=== PATIENT | female | born 1955 | race Caucasian/White ===

== ENCOUNTER 2021-01-18 13:42 | Emergency (ER) | payer BC, SELFPAY ==
--- NOTE | ~2021-01-18 | CT_ITS ---
EXAMINATION: CT FACIAL BONES WITHOUT CONTRAST CLINICAL INFORMATION: Pain/swelling and lump right maxillary area x 4 days. COMPARISON: None TECHNIQUE: Axial 3 mm thin and reformatted 1.5 mm thin sagittal and coronal images of facial bones were obtained. This CT examination was performed using dose optimization techniques as appropriate, variously including the following: *Automated exposure control *Adjustment of mA and/or kV according to patient size (this includes techniques or standardized protocols for targeted exams where dose is matched to indication/reason for exam; i.e. extremities or head) *Use of iterative reconstruction technique DLP: 253 mGy-cm FINDINGS: There is no acute maxillofacial fracture. The pterygoid plates are intact. The zygomatic arches are intact. The lamina papyracea are intact. The orbital rims are intact. The paranasal sinuses are well-aerated. No air-fluid levels are seen. There is mild deviation of the nasal septum to the left with a small bony spur. The ostiomeatal complexes are clear. The lamina papyracea are intact. The ethmoid roofs are symmetric. The carotid canals are normally covered by bone. The oral cavities are limited in evaluation secondary to dental hardware artifact. The mastoid air cells and visualized middle ear cavities are well-aerated. The orbits are normal. The TMJs are unremarkable. The imaged portions of the brain demonstrate no acute abnormality. CT/CT facial bones wo con IMPRESSION: No soft tissue mass or swelling seen along the right maxillary area.
[2021-01-18 14:08] VITALS: BP 132/66; PULSE 59; RESP 18; TEMP 36.7; O2SAT 98; BMI 25.0
--- NOTE | 2021-01-18 16:55 | ED_ITS ---
HPI - Skin/Abscess/Foreign Bdy General Chief complaint: Skin/Abscess/Foreign Body Stated complaint: eye issue Time Seen by Provider: 01/18/21 14:12 Source: patient Mode of arrival: ambulatory Limitations: no limitations History of Present Illness MD complaint: other (Lump to right maxillary area) Onset (ago): day(s) (4-5 days ago) Location: face Severity: mild Quality: aching and constant Pain Consistency: constant Relieving factors: none Exacerbating factors: palpation Context: none Associated symptoms: denies other symptoms Treatments prior to arrival: none Related Data Previous Rx's Medication Instructions Recorded amoxicillin 875 mg-potassium 1 tab PO BID 10 Days #20 tab 01/18/21 clavulanate 125 mg tablet (Augmentin) prednisone 20 mg tablet 20 mg PO DAILY 7 Days #7 tab 01/18/21 Allergies Allergy/AdvReac Type Severity Reaction Status Date / Time No Known Allergies Allergy Mild NOT Verified 01/18/21 14:07 APPLICABLE Review of Systems Review of Systems: Constitutional : No Fever, No Chills, Cardiovascular : No Chest Pain, No SOB Respiratory : No Dyspnea Gastrointestinal : No abdominal pain Musculoskeletal : No Joint Swelling Skin : positive skin lump, No skin laceration, No Foreign bodies, No rash, No surrounding erythema Neuro : No Weakness, No Numbness/tingling Psych : No SI/HI/thoughts of self injury Yes all other systems are reviewed and are negative [facility] Past Medical History Attestation statement: The following information was validated with the patient. Surgical History S/P hip replacement Social History Social History Advance Directives: No Advance Directives Information Provided: No Physical Exam Vital Signs: Vital Signs: Last Vital Signs Temp 98.0 F 01/18/21 14:08 Pulse 59 01/18/21 14:08 Resp 18 01/18/21 14:08 BP 132/66 01/18/21 14:08 Pulse Ox 98 01/18/21 14:08 Body Mass Index 25.0 vital signs have been reviewed as normal and appeared to be correct. Blood pressure normal. Heart rate normal. Respiration rate normal. Temperature normal. Oxygen saturation normal. Appearance: Alert. Oriented X3. No acute distress. Head: Normal external exam. Normocephalic. Atraumatic. To the right maxillary area patient has tenderness all patient and a lump that is non mobile noted with mild soft tissue swelling. No erythema/streaking/fluctuance or foreign bodies/ecchymosis or signs of trauma noted. Eyes: PERRLA. EOMI. Conjunctiva and sclera normal. Eyelids normal. ENT: Pharynx normal. Uvula midline. Moist mucous membranes. Neck: Normal inspection. Neck supple. FROM. No meningeal signs. No neck mass noted. CVS: Normal heart rate and rhythm. Respiratory: No respiratory distress. Painless inspiration. Back: Full range of motion noted. No rashes/lesion/induration/fluctuance or signs of infection noted. Skin: Skin warm and dry. Normal skin color. Normal skin turgor. No rashes/lesions/lacerations noted. Extremities: Extremities exhibit normal range of motion. Extremities nontender. Neuro: Oriented X 3. No motor deficit. No sensory deficit. Reflexes normal. Normal steady gait. No focal neuro deficits noted. Vascular: + radial pulses Normal cap refill. No cyanosis noted to upper extremity nails Course Course Course Narrative: 14:35pm - 65-year-old female presenting to the ED with complaints of atraumatic lump to her right maxillary area over the past 4 days with pain. She denies any trauma to the site. She denies any other symptoms complaints or concerns at this time. Therefore at this time will obtain a CT scan of facial bones and re-evaluate. Reevaluation(s) Reevaluation #1: - CT scan of facial bones negative for any acute processes. Therefore print out the results and gave it to the patient. Will will try some antibiotics and some steroids and instructions to follow-up with her PCP within the next 1-2 weeks for an outpatient MRI and to return if any new or worsening symptoms. Patient understands agrees with this plan. Time: 17:21 MDM - Skin/Abscess/Foreign Bdy Medical Records Attestation: I reviewed the patient's medical records. Imaging Data CT scan of facial bones without contrast: Attestation: I personally reviewed and interpreted this imaging study as follows: Radiologist's impression: FINDINGS: There is no acute maxillofacial fracture. The pterygoid plates are intact. The zygomatic arches are intact. The lamina papyracea are intact. The orbital rims are intact. The paranasal sinuses are well-aerated. No air-fluid levels are seen. There is mild deviation of the nasal septum to the left with a small bony spur. The ostiomeatal complexes are clear. The lamina papyracea are intact. The ethmoid roofs are symmetric. The carotid canals are normally covered by bone. The oral cavities are limited in evaluation secondary to dental hardware artifact. The mastoid air cells and visualized middle ear cavities are well-aerated. The orbits are normal. The TMJs are unremarkable. The imaged portions of the brain demonstrate no acute abnormality. CT/CT facial bones wo con IMPRESSION: No soft tissue mass or swelling seen along the right maxillary area. Discharge Plan Discharge Clinical Impression: Lump on face Patient Disposition: Home, Self-Care Instructions: Atypical Facial Pain (ED) Prescriptions: New amoxicillin-pot clavulanate [Augmentin] 875-125 mg tablet 1 tab PO BID 10 Days Qty: 20 RF: 0 prednisone 20 mg tablet 20 mg PO DAILY 7 Days Qty: 7 RF: 0 Referrals: Mateus Mccord DO [Primary Care Provider] - 2 days (Call tomorrow to make a follow-up appointment within the next 1-2 weeks for an outpatient MRI to further evaluate this lump on the right maxillary/facial aspect) Print Language: Faroese
[2021-01-18] MEDS: Ibuprofen 600 MG TABLET PO (17:24)
== END 2021-01-18 17:33 | disposition home or self-care (01) ==
PROVIDERS: Emergency Provider Emergency Medicine; PCP Internal Medicine
DX: R22.0 Localized swelling, mass and lump, head (principal); R68.84 Jaw pain; Z79.899 Other long term (current) drug therapy
CPT/HCPCS: 70486; 99283; 99284

== ENCOUNTER → 2021-01-27 14:41 | Outpatient (BNVA) | payer BC, SELFPAY | PROVIDERS: PCP Internal Medicine; Referring Provider Internal Medicine; Visit Provider Internal Medicine Cardiovascular Disease | DX: R00.2 Palpitations (principal); R06.02 Shortness of breath; Z82.49 Family history of ischemic heart disease and other diseases of the circulatory system | CPT/HCPCS: 93005 ==

== ENCOUNTER → 2021-02-16 09:39 | Outpatient (REF) | payer BC, SELFPAY ==
--- NOTE | 2021-02-16 09:44 | HM_ITS ---
Conclusion: 1. Patient was monitored for total period of 13 days and 6 hours 2. Baseline rhythm is normal sinus rhythm with average heart of 74 beats per minute 3. No significant pauses or bradycardia noted 4. Two episodes of Mobitz type 1 second-degree AV block noted around 7.30-8 p.m.. 5. 5 supraventricular tachycardia episode longest lasting 15 beats 6. Rare ectopy noted 7. Patient reported event correlated with sinus rhythm MTDD
--- NOTE | 2021-02-16 09:44 | CA_ITS ---
Acquisition Time: 2021-02-16 09:50:52 Total Exercise Time: 00:05:21 Test Indications: SOB, PALPITATIONS Medications: SEE CHART Protocol: OLY Max HR: 153 BPM 98% of Pred: 156 BPM Max BP: 148/066 mmHG Max Work Load: 7.0 METS Exercise stress test with exercise 5 min 21 of Oly protocol, without anginal symptoms, without arrythmia, with normotensive response to exercise, without EKG changes meeting criteria for ischemia. Test reviewed with Dr Lieberman. Referred By: Mario Mendez Overread By: XIAO AGUILERA
== END ==
LOC: HO.CARD 09:39
PROVIDERS: Visit Provider Internal Medicine Cardiovascular Disease
DX: R00.2 Palpitations (principal); R06.02 Shortness of breath
CPT/HCPCS: 93017; 93246

== ENCOUNTER 2021-02-17 15:13 | Outpatient (REF) | payer BC, SELFPAY ==
--- NOTE | ~2021-02-17 | US_ITS ---
EXAMINATION: US EXTRACRANIAL CAROTID DUPLEX, BILATERAL CLINICAL INFORMATION: Family history of ischemic heart disease, palpitations COMPARISON: None TECHNIQUE: Real-time ultrasound and Doppler techniques (integrating B-mode 2-D vascular images, Doppler spectral analysis and color-flow Doppler imaging) were utilized to interrogate the extracranial carotid arteries, the vertebral arteries and proximal subclavian arteries bilaterally. The degree of stenosis is determined by criteria similar to NASCET. FINDINGS: Right Side: 1. There is heterogeneous atherosclerotic plaque seen in the bifurcation/proximal ICA region. 2. The common carotid artery PSV proximally is 136 cm/s and distally 104 cm/s. 3. The proximal internal carotid artery velocities are 102 cm/s systolic and 46 cm/s diastolic. 4. The proximal external carotid artery PSV is 108 cm/s. 5. The vertebral artery shows antegrade flow. 6. The subclavian artery waveforms are normal. Left Side: 1. There is mild atherosclerotic plaque seen in the bifurcation/proximal ICA region. 2. The common carotid artery PSV proximally is 97 cm/s and distally 136 cm/s. 3. The proximal internal carotid artery velocities are 113 cm/s systolic and 50 cm/s diastolic. 4. The proximal external carotid artery PSV is 101 cm/s. 5. The vertebral artery shows antegrade flow. 6. The subclavian artery waveforms are normal. US/US carotid duplex BI IMPRESSION: 1. RIGHT: Minimal, non-hemodynamically significant stenosis of the proximal right internal carotid artery corresponding to a 0-49% stenosis by velocity criteria. 2. LEFT: Minimal, non-hemodynamically significant stenosis of the proximal left internal carotid artery corresponding to a 0-49% stenosis by velocity criteria.
== END 2021-02-17 15:14 | disposition home or self-care (01) ==
LOC: HO.US 15:13
PROVIDERS: Visit Provider Internal Medicine Cardiovascular Disease
DX: R00.2 Palpitations (principal); Z82.49 Family history of ischemic heart disease and other diseases of the circulatory system
CPT/HCPCS: 93880

== ENCOUNTER → 2021-03-24 09:17 | Outpatient (REF) | payer BC, SELFPAY ==
--- NOTE | 2021-03-24 09:22 | CA_ITS ---
Transthoracic Echocardiogram Patient (Last, First, Middle): Avani Pendleton, Gender: Female Date of : 1955 Age: 65 Procedure Date: 03/24/2021 Procedure Type: Transthoracic Echocardiogram Location: OP Height: 170.18 cm Weight: 73.03 kg BSA: 1.84 m2 Heart Rate: bpm BP: 110 / 70 mmHg Data Support Analyst: SOTREO Referring MD: Mario Mendez MD [employer]: Mario Mendez MD Symptoms: R00.2 - Palpitations Study Quality: Fair ECG Rhythm: Sinus Conclusions: - 1. Normal LV systolic function with grade 1 diastolic dysfunction 2. Normal cardiac valvular Doppler 3. Normal RV systolic pressure 4. No pericardial effusion Findings Left Ventricle Normal left ventricular size, thickness, and systolic function. The visually estimated ejection fraction is between 60-65%. Spectral Doppler is indicative of an impaired relaxation filling pattern. E/E prime ratio is <8, consistent with normal filling pressures. Right Ventricle Normal right ventricular cavity size and systolic function. Atria Both atria are normal in size. Interatrial shunt cannot be excluded. Aortic Valve The aortic valve structure and function is likely normal. There is no aortic valve stenosis. There is no aortic valve regurgitation. Mitral Valve Normal mitral valve structure and function. There is trace mitral valve regurgitation. There is no mitral valve stenosis. Pulmonic Valve The pulmonic valve was not well visualized. Tricuspid Valve Likely normal tricuspid valve structure and function. There is trace tricuspid valve regurgitation. The right ventricular systolic pressure is normal. The right ventricular systolic pressure is 15 mmHg. Normal right atrial pressure. There is no evidence of pulmonary hypertension. Great Vessels All visible segments of the aorta are normal in size. The pulmonary artery was not well visualized. Venous The inferior vena cava is normal in size and collapses greater than 50% with inspiration. Pericardium/Pleural There is no evidence of pericardial effusion. Prior Study Comparison no previous study in the last 5 years for comparison Measurements 2D Linear Measurements IVSd: 1.05 0.6-0.9/0.6-1.0 cm LVIDd: 4.12 3.9-5.3/4.2-5.9 cm LVIDd Index: 2.24 2.4-3.2/2.2-3.1 cm/m2 LVIDs: 2.91 2.0-3.6 cm LVPWd: 0.83 0.7-1.1 cm Ao Root: 3.60 2.1-3.5 cm LA Diam: 2.80 2.7-3.8/3.0-4.0 cm LAIDs Index: 1.52 1.5-2.3 cm/m2 LV Mass: 151.46 67-162/88-224 g LV Mass Index: 82.31 43-95/49-115 g/m2 LVOT Diam: 2.10 3.0+(-)1.3 cm 2D Systolic Function EF 4C: 65.70 >55% EF 2C: 71.90 >55% EF BiP: 67.10 >55% Mitral Valve MV Pk E: 0.55 MV PK A: 0.78 MV Decel Time: 266.00 E/A: 0.70 E'Lateral: 9.90 E'Medial: 8.16 E/E' Med: 6.80 E/E' Lat: 5.60 PHT: 78.00 MVA PHT: 2.82 Decel Steele: 2.08 Aortic Valve AoV Pk Rayo: 1.03 AoV Mn Rayo: 0.84 AoV VTI: 0.26 AoV Pk Grad: 4.00 Aov Mn Grad: 3.00 MARGOTH Cont.VTI: 2.23 LVOT LVOT Pk Rayo: 0.65 LVOT Mn Rayo: 0.50 LVOT VTI: 0.17 LVOT Pk Grad: 2.00 LVOT Mn Grad: 1.00 LVOT Diam: 2.10 LVOT Area: 3.46 Diastolic Function MV Pk E: 0.55 MV Pk A: 0.78 E/A: 0.70 E'Medial: 8.16 E/E' Med: 6.80 E' Laterial: 9.90 E/E' Lat: 5.60 Right Ventricle TAPSE (mm): 19.10 TVS' Rayo: 9.79 Tricuspid Valve TR Pk Rayo: 1.75 TR Pk Grad: 12.00 RA Press: 3.00 RVSP: 15.00 Great Vessels Aorta Ao Root-2D: 3.60 2.0-3.7 cm Ao Asc: 3.20 2.1-3.4 cm Updated in Other Vendor System with Status of Final Mario Mendez MD electronically signed on 03/25/2021 4:16:42 PM with status of Final
== END ==
LOC: HO.CARD 09:17
PROVIDERS: Visit Provider Internal Medicine Cardiovascular Disease
DX: R00.2 Palpitations (principal); R06.02 Shortness of breath
CPT/HCPCS: 93306

== ENCOUNTER → 2021-04-04 13:43 | Outpatient (BNVA) | payer BC, SELFPAY | PROVIDERS: PCP Internal Medicine; Referring Provider Internal Medicine; Visit Provider Internal Medicine Cardiovascular Disease ==

== ENCOUNTER 2021-04-09 09:34 | Outpatient (REF) | payer BC, SELFPAY ==
[2021-04-09 10:25] LABS: Cholesterol 231 mg/dL; HDL Cholesterol 62 mg/dL; LDL Cholesterol Calculated 153 mg/dl; Triglycerides 84 mg/dL
[2021-04-11 20:07] LABS: CRP High Sensitivity 1.9 mg/L
== END 2021-04-09 09:35 | disposition home or self-care (01) ==
LOC: HO.LAB 09:34
PROVIDERS: PCP Internal Medicine; Visit Provider Internal Medicine Cardiovascular Disease
DX: I25.10 Atherosclerotic heart disease of native coronary artery without angina pectoris (principal); I65.23 Occlusion and stenosis of bilateral carotid arteries; E78.5 Hyperlipidemia, unspecified
CPT/HCPCS: 36415; 80061; 86141

== ENCOUNTER 2021-06-29 08:24 | Outpatient (REF) | payer BC, SELFPAY ==
[2021-06-29 09:31] LABS: Cholesterol 143 mg/dL; HDL Cholesterol 67 mg/dL; LDL Cholesterol Calculated 67 mg/dl; Triglycerides 49 mg/dL
== END 2021-06-29 08:25 | disposition home or self-care (01) ==
LOC: HO.LAB 08:24
PROVIDERS: PCP Internal Medicine; Visit Provider Internal Medicine Cardiovascular Disease
DX: I65.23 Occlusion and stenosis of bilateral carotid arteries (principal)
CPT/HCPCS: 36415; 80061

== ENCOUNTER 2022-05-08 09:44 | Outpatient (REF) | payer MEDICARE, SELFPAY ==
--- NOTE | ~2022-05-08 | US_ITS ---
EXAMINATION: US EXTRACRANIAL CAROTID DUPLEX, BILATERAL CLINICAL INFORMATION: Carotid stenosis. COMPARISON: Carotid ultrasound 02/17/2021. TECHNIQUE: Real-time ultrasound and Doppler techniques (integrating B-mode 2-D vascular images, Doppler spectral analysis and color-flow Doppler imaging) were utilized to interrogate the extracranial carotid arteries, the vertebral arteries and proximal subclavian arteries bilaterally. The degree of stenosis is determined by criteria similar to NASCET. FINDINGS: Right Side: 1. There is mild atherosclerotic plaque seen in the bifurcation/proximal ICA region. 2. The common carotid artery PSV proximally is 147 cm/s and distally 92 cm/s. 3. The proximal internal carotid artery velocities are 112 cm/s systolic and 32 cm/s diastolic. 4. The proximal external carotid artery PSV is 103 cm/s. 5. The vertebral artery shows antegrade flow. 6. The subclavian artery waveforms are normal. Left Side: 1. There is mild atherosclerotic plaque seen in the bifurcation/proximal ICA region. 2. The common carotid artery PSV proximally is 112 cm/s and distally 112 cm/s. 3. The proximal internal carotid artery velocities are 117 cm/s systolic and 38 cm/s diastolic. 4. The proximal external carotid artery PSV is 101 cm/s. 5. The vertebral artery shows antegrade flow. 6. The subclavian artery waveforms are normal. US/US carotid duplex BI IMPRESSION: 1. RIGHT: Minimal, non-hemodynamically significant stenosis of the proximal right internal carotid artery corresponding to a 0-49% stenosis by velocity criteria. 2. LEFT: Minimal, non-hemodynamically significant stenosis of the proximal left internal carotid artery corresponding to a 0-49% stenosis by velocity criteria. 3. There is no change in the category severity of disease when compared to the previous study dated 02/17/2021.
[2022-05-08 11:37] LABS: Cholesterol 150 mg/dL; HDL Cholesterol 63 mg/dL; LDL Cholesterol Calculated 75 mg/dl; Triglycerides 61 mg/dL
== END 2022-05-08 09:45 | disposition home or self-care (01) ==
LOC: HO.US 09:44
PROVIDERS: PCP Internal Medicine; Visit Provider Internal Medicine Cardiovascular Disease
DX: I65.23 Occlusion and stenosis of bilateral carotid arteries (principal)
CPT/HCPCS: 36415; 80061; 93880

== ENCOUNTER → 2022-06-13 12:55 | Outpatient (BNVA) | payer MEDICARE, SELFPAY | PROVIDERS: PCP Internal Medicine; Referring Provider Internal Medicine; Visit Provider Internal Medicine Cardiovascular Disease | DX: I47.1 Supraventricular tachycardia (principal); I65.23 Occlusion and stenosis of bilateral carotid arteries | CPT/HCPCS: 93005; 99212 ==

== ENCOUNTER 2022-10-13 08:14 | Outpatient (REF) | payer MEDICARE, SELFPAY ==
[2022-10-13 09:36] LABS: Cholesterol 159 mg/dL; HDL Cholesterol 73 mg/dL; LDL Cholesterol Calculated 72 mg/dl; Triglycerides 70 mg/dL
[2022-10-16 10:43] LABS: CRP High Sensitivity 0.7 mg/L
== END 2022-10-13 08:15 | disposition home or self-care (01) ==
LOC: HO.LAB 08:14
PROVIDERS: PCP Internal Medicine; Visit Provider Internal Medicine Cardiovascular Disease
DX: I25.10 Atherosclerotic heart disease of native coronary artery without angina pectoris (principal); I65.23 Occlusion and stenosis of bilateral carotid arteries; E78.5 Hyperlipidemia, unspecified
CPT/HCPCS: 36415; 80061; 86141

== ENCOUNTER 2023-06-26 09:14 | Outpatient (AMB) | payer MEDICARE, SELFPAY ==
[2023-06-26 09:24] VITALS: BP 120/80; PULSE 70; BMI 25.2
--- NOTE | 2023-06-26 09:24 | MHC.OFFVIS ---
Vital Signs 06/26/23 09:24 Height 5 ft 7 in Weight 160 lb 14.999 oz BMI 25.2 BP 120/80 Blood Pressure Location Lt brachial Position Sitting Pulse 70 Intake Visit Reasons: 1 yr f/up Intake Note: 1 year follow-up with ekg c/o some chest pain in center of chest Ultrasound Spec Required: No Allergies No Known Allergies Allergy (Mild, Verified 06/13/22 13:09) NOT APPLICABLE Medication List - Last Reconciled 06/26/23 by Mario Mendez MD aspirin (Adult Low Dose Aspirin) 81 mg PO DAILY atorvastatin 20 mg PO DAILY hydrocodone-acetaminophen 7.5-325 mg 1 tab PO TID PRN lorazepam 0.5 mg PO DAILY PRN raloxifene 60 mg PO DAILY trazodone 50 mg PO BEDTIME HPI Comments Details: Avani comes for follow-up. She has been doing overall well. Lipids are well controlled although she says she has not been tolerating atorvastatin side effects with muscle and joint aches. Recently she would developed some left-sided chest discomfort which she describes as tightness. She said these episodes of with exertion. She has been otherwise doing well. Regularly exercising. No prolonged palpitations. The skipped heartbeats. No heart failure symptoms. No lightheadedness, syncope. She says she is slightly concerned about her chest discomfort as a brother recently last year had quadruple coronary artery bypass grafting. [facility] Medical History SVT (supraventricular tachycardia) Atherosclerosis of both carotid arteries Surgical History S/P hip replacement Social History Alcohol intake: former Patient Tobacco Use Status: Current someday Tobacco user Review of Systems Const Denies chills, Denies fatigue, Denies fever(s), Denies frequent falls, Denies weakness, Denies weight gain and Denies weight loss ENT Denies dizziness Card Denies chest pain, Denies leg edema, Denies lightheadedness, Denies palpitations, Denies dyspnea, Denies dyspnea on exertion, Denies orthopnea and Denies other (loss of consciousness) Resp Denies cough, Denies dyspnea and Denies dyspnea on exertion GI Denies hematochezia and Denies change in stool character Musc Denies abnormal gait, Denies muscle weakness, Denies numbness, Denies radiating pain into limb and Denies tingling Neuro Denies abnormal gait, Denies dizziness, Denies frequent falls, Denies numbness, Denies tingling and Denies weakness Endo Denies fatigue and Denies palpitations Physical Exam Vital Signs: Last Vital Signs Pulse 70 06/26/23 09:24 BP 120/80 06/26/23 09:24 BMI result Body Mass Index 25.2 Const General: cooperative, comfortable, no acute distress, well developed, alert, awake, Physically active and well groomed Nutritional Appearance: average body habitus Orientation/consciousness: patient oriented x3 Limitations: no limitations Neck Neck: Yes trachea midline, Yes supple and Yes no JVD Resp Effort & Inspection: normal respiratory effort Auscultation: clear to auscultation bilaterally Cardio Jugular venous distension: no JVD Palpation: normal PMI Rate: regular rate Rhythm: regular rhythm Heart sounds: S1 normal heart sound present, S2 normal heart sound present, no click, no gallops, no murmurs and no rubs GI Auscultation: normal bowel sounds Skin General skin exam: no rashes or lesions noted Neuro General: patient oriented x3 and no focal motor deficits Extrem General: Yes no clubbing, cyanosis or edema Psych Appearance: grossly normal Office Procedures EKG Details: EKG shows normal sinus rhythm with incomplete right bundle-branch block with poor R-wave progression with nonspecific ST wave changes [id number], Complete Assessment & Plan Assessment & Plan (1) Chest pain: Code(s): R07.9 - Chest pain, unspecified Category: Medical Plan: Recent onset chest pain syndrome with exertion. Multiple risk factors including strong family history for coronary artery disease as well as her own history of hyperlipidemia and carotid disease.. Need to rule out obstructive coronary artery disease. Suggest to perform a stress echocardiogram near future. Further treatment based on the finding. If this is completely normal at high workload will continue with aggressive medical therapy and lipid modification. (2) SVT (supraventricular tachycardia): Code(s): I47.1 - Supraventricular tachycardia Category: Medical Plan: Prior history of SVT without any obvious clinical recurrence at this point time. Continue to avoid stimulants. Stress mitigation strategies to be pursued. No pharmacotherapy is indicated. (3) Atherosclerosis of both carotid arteries: Code(s): I65.23 - Occlusion and stenosis of bilateral carotid arteries Category: Medical Plan: Mild atherosclerotic disease of carotid arteries with strong family history. Should be on statin therapy target goal LDL closer to 60 mg per dL. Currently not tolerating atorvastatin. We discussed about switching her to water-soluble therapy with rosuvastatin 10 mg. If she tolerates this will continue and follow-up lipid panel in 3 months time. If she continues to develop intolerance to the same will pursue alternative therapy such as PCSK9 inhibitor therapy. She this was discussed with her. She understands and agrees. Will follow up in the clinic in 1 year's time, sooner p.r.n.. Thank you for allowing me to partake in her care Orders: Orders CA echo stress exercise Today R07.9 - Chest pain, unspecified Coding Level of Care Code Est Pt Level 4 (79146) Diagnoses Chest pain R07.9 SVT (supraventricular tachycardia) I47.1 Atherosclerosis of both carotid arteries I65.23 CPT Codes EKG - CPT: [id number], Complete ([id number])
== END 2023-06-26 10:00 | disposition home or self-care (01) ==
PROVIDERS: Visit Provider Internal Medicine Cardiovascular Disease
DX: R07.9 Chest pain, unspecified (principal); I47.10 Supraventricular tachycardia, unspecified; I65.23 Occlusion and stenosis of bilateral carotid arteries
CPT/HCPCS: 93010; 99214

== ENCOUNTER → 2023-06-26 09:14 | Outpatient (BNVA) | payer MEDICARE, SELFPAY | PROVIDERS: Visit Provider Internal Medicine Cardiovascular Disease | DX: R07.9 Chest pain, unspecified (principal); I65.23 Occlusion and stenosis of bilateral carotid arteries; I47.10 Supraventricular tachycardia, unspecified | CPT/HCPCS: 93005; 99212 ==

== ENCOUNTER → 2023-07-31 10:39 | Outpatient (REF) | payer MEDICARE, SELFPAY ==
--- NOTE | 2023-07-31 10:45 | CA_ITS ---
Acquisition Time: 2023-07-31 10:52:16 Total Exercise Time: 00:05:30 Test Indications: CP Medications: SEE H Protocol: OLY Max HR: 157 BPM 102% of Pred: 153 BPM Max BP: 122/084 mmHG Max Work Load: 7.0 METS Exercise stress test exercise 5 min 30 sec of Oly protocol achieving 102% MPHR, with mild SOB, no chest discomfort, without chest discomfort, without arrhythmias, with normotensive response to exercise, with brisk HR response, without EKG changes. Echo images obtained by tech at rest and immediately post peak exercise. Definity contrast used. Test reviewed with Dr. Mendez Referred By: Mario Mendez Overread By: Jennifer Lopes
== END ==
LOC: HO.CARD 10:39
PROVIDERS: PCP Internal Medicine; Visit Provider Internal Medicine Cardiovascular Disease
DX: R07.9 Chest pain, unspecified (principal)
CPT/HCPCS: 93350; Q9957

== ENCOUNTER → 2023-07-31 10:45 | Outpatient (BNV) | payer MEDICARE, SELFPAY | PROVIDERS: PCP Internal Medicine; Visit Provider Nurse Practitioner | DX: R06.02 Shortness of breath (principal); R07.9 Chest pain, unspecified | CPT/HCPCS: 93016; 93018; 93350; 93352 ==

== ENCOUNTER 2024-06-24 09:53 | Outpatient (REF) | payer MEDICARE, SELFPAY ==
[2024-06-24 12:18] LABS: Cholesterol 150 mg/dL (<200); HDL Cholesterol 78 mg/dL (>40); LDL Cholesterol Calculated 58 mg/dL (<100); Triglycerides 73 mg/dL (<150)
[2024-06-26 00:44] LABS: CRP High Sensitivity 1.3 mg/L
== END 2024-06-24 09:54 | disposition home or self-care (01) ==
LOC: HO.LAB 09:53
PROVIDERS: PCP Internal Medicine; Visit Provider Internal Medicine Cardiovascular Disease
DX: I65.23 Occlusion and stenosis of bilateral carotid arteries (principal); I47.10 Supraventricular tachycardia, unspecified
CPT/HCPCS: 36415; 80061; 86141; 93005; 99212

== ENCOUNTER 2024-06-24 09:53 | Outpatient (AMB) | payer MEDICARE, SELFPAY ==
--- NOTE | 2024-06-24 09:57 | A.OFFVIS_ITS ---
Vital Signs 06/24/24 09:58 Height 5 ft 7 in Weight 160 lb 14.999 oz BMI 25.2 BP 110/74 Blood Pressure Location Lt brachial Position Sitting Pulse 69 Intake Visit Reasons: 1 yr f/up Intake Note: 1 year follow-up with c/o back pain, rash, flu like symptoms within with 24 hours Hospital Administrator Required: No Allergies No Known Allergies Allergy (Mild, Verified 06/13/22 13:09) NOT APPLICABLE Medication List - Last Reconciled 06/24/24 by Mario Mendez MD aspirin (Adult Low Dose Aspirin) 81 mg PO DAILY evolocumab (Repatha SureClick) 140 mg subcut Q2W hydrocodone-acetaminophen 7.5-325 mg 1 tab PO TID PRN lorazepam 0.5 mg PO DAILY PRN trazodone 50 mg PO BEDTIME HPI Comments Details: Avani comes for follow-up. Overall she has been doing well from cardiac perspective. Denies any exertional symptoms. Denies any exertional chest pain or shortness of breath. Has not had any prolonged palpitation irregular heartbeat. However she has developed some flu-like syndrome 1 day after her Repatha therapy. This most likely an allergic reaction to it. She denies any other cardiac symptoms. No shortness of breath, orthopnea, PND. She remains very active and travels extensively. [facility] Medical History (Updated 06/24/24 @ 10:59 by Mario Mendez MD) SVT (supraventricular tachycardia) Atherosclerosis of both carotid arteries Surgical History S/P hip replacement Social History Alcohol intake: former Patient Tobacco Use Status: Current someday Tobacco user Review of Systems Const Denies chills, Denies fatigue, Denies fever(s), Denies frequent falls, Denies weakness, Denies weight gain and Denies weight loss ENT Denies dizziness Card Denies chest pain, Denies leg edema, Denies lightheadedness, Denies palpitations, Denies dyspnea, Denies dyspnea on exertion, Denies orthopnea and Denies other (loss of consciousness) Resp Denies cough, Denies dyspnea and Denies dyspnea on exertion GI Denies hematochezia and Denies change in stool character Musc Denies abnormal gait, Denies muscle weakness, Denies numbness, Denies radiating pain into limb and Denies tingling Neuro Denies abnormal gait, Denies dizziness, Denies frequent falls, Denies numbness, Denies tingling and Denies weakness Endo Denies fatigue and Denies palpitations Physical Exam Vital Signs: Last Vital Signs Pulse 69 06/24/24 09:58 BP 110/74 06/24/24 09:58 BMI result Body Mass Index 25.2 Const General: cooperative, comfortable, no acute distress, well developed, alert, awake, Physically active and well groomed Nutritional Appearance: average body habitus Orientation/consciousness: patient oriented x3 Limitations: no limitations Neck Neck: Yes trachea midline, Yes supple and Yes no JVD Resp Effort & Inspection: normal respiratory effort Auscultation: clear to auscultation bilaterally Cardio Jugular venous distension: no JVD Palpation: normal PMI Rate: regular rate Rhythm: regular rhythm Heart sounds: S1 normal heart sound present, S2 normal heart sound present, no click, no gallops, no murmurs and no rubs GI Auscultation: normal bowel sounds Skin General skin exam: no rashes or lesions noted Neuro General: patient oriented x3 and no focal motor deficits Extrem General: Yes no clubbing, cyanosis or edema Psych Appearance: grossly normal Office Procedures EKG Details: EKG shows normal sinus rhythm with poor R-wave progression most likely due to lead placement [id number], Complete Assessment & Plan Assessment & Plan (1) Atherosclerosis of both carotid arteries: Code(s): I65.23 - Occlusion and stenosis of bilateral carotid arteries Category: Medical Plan: Bilateral mild carotid artery disease with no new symptoms of atherosclerosis. At this point time she is on aspirin therapy which will continue for life if she developed intolerance to PCSK9 inhibitor therapy, related to allergic reaction to the protein mi agreeable. We will obtain a lipid panel today. She was want to switch back to statin therapy at this point time. Advise to start on coenzyme Q10 for 2 weeks at 100 mg followed by statin therapy with rosuvastatin 10 mg daily. Follow-up lipid panel in 3 months time. Discussed management with her. She was agreeable to this management plan. (2) SVT (supraventricular tachycardia): Code(s): I47.1 - Supraventricular tachycardia Category: Medical Plan: SVT without any clinical recurrence at this point time. Continue without any pharmacotherapy. Vagal maneuvers were discussed. Avoidance of stimulants was discussed. No change in pharmacotherapy or management. Will follow up in the clinic in 1 year's time, sooner p.r.n.. Thank you for allowing me to partake in her care Orders: Orders Lipid Panel Today I65.23 - Occlusion and stenosis of bilateral carotid arteries CRP High Sensitivity Today I65.23 - Occlusion and stenosis of bilateral carotid arteries Medications: New coenzyme Q10 100 mg PO DAILY 30 caps 5RF I65.23 - Occlusion and stenosis of bilateral carotid arteries rosuvastatin (Crestor) 10 mg PO DAILY 30 tabs 3RF I65.23 - Occlusion and stenosis of bilateral carotid arteries Discontinued evolocumab (Repatha SureClick) Discontinued Reason: Doctor's Order 140 mg subcut Q2W 6 mL 1RF Coding Level of Care Code Est Pt Level 4 (18835) Complex EM visit Add On G2211 Diagnoses Atherosclerosis of both carotid arteries I65.23 SVT (supraventricular tachycardia) I47.1 CPT Codes EKG - CPT: 73777-[id number], Complete ([id number])
[2024-06-24 09:58] VITALS: BP 110/74; PULSE 69; BMI 25.2
== END 2024-06-24 10:34 | disposition home or self-care (01) ==
LOC: HO.HCS 09:54
PROVIDERS: PCP Internal Medicine; Visit Provider Internal Medicine Cardiovascular Disease
DX: I65.23 Occlusion and stenosis of bilateral carotid arteries (principal); I47.10 Supraventricular tachycardia, unspecified
CPT/HCPCS: 93010; 99214; G2211

== ENCOUNTER 2024-08-14 10:06 | Outpatient (REF) | payer MEDICARE, SELFPAY ==
[2024-08-14 11:54] LABS: Cholesterol 203 mg/dL (<200); HDL Cholesterol 79 mg/dL (>40); LDL Cholesterol Calculated 112 mg/dL (<100); Triglycerides 62 mg/dL (<150)
== END 2024-08-14 10:07 | disposition home or self-care (01) ==
LOC: HO.LAB 10:06
PROVIDERS: PCP Internal Medicine; Visit Provider Internal Medicine Cardiovascular Disease
DX: I65.23 Occlusion and stenosis of bilateral carotid arteries (principal)
CPT/HCPCS: 36415; 80061

== ENCOUNTER 2025-02-06 09:08 | Outpatient (REF) | payer MEDICARE, SELFPAY ==
[2025-02-06 10:22] LABS: Cholesterol 208 mg/dL (<200); HDL Cholesterol 80 mg/dL (>40); Triglycerides 59 mg/dL (<150)
== END 2025-02-06 09:09 | disposition home or self-care (01) ==
LOC: HO.LAB 09:08
PROVIDERS: PCP Internal Medicine; Visit Provider Internal Medicine Cardiovascular Disease
DX: I65.23 Occlusion and stenosis of bilateral carotid arteries (principal)
CPT/HCPCS: 36415; 80061